=== PATIENT | female | born 1950 | race Caucasian/White ===

== ENCOUNTER 2018-04-25 13:29 | Emergency (ER) | payer MEDICARE, BC ==
--- NOTE | 2018-04-25 14:05 | UC ---
Headache HPI - History Of Current Complaint Chief Complaint: UCHeadache Stated Complaint: NAUSEA, DIZZINESS, HEAD/NECK ACHE Time Seen by Provider: 04/25/18 14:02 Hx Last Menstrual Period: n/a Pain Intensity: 8 - Allergies/Home Medications Allergies/Adverse Reactions: Allergies Allergy/AdvReac Type Severity Reaction Status Date / Time Penicillins Allergy Unknown Verified 04/25/18 13:58 Reaction Details-strong family hx Home Medications: Home Medications Eye Drop For Glaucoma 1 drop BOTH EYES DAILY 04/25/18 [History Confirmed ] Ibuprofen TAB* [Motrin TAB* 400 MG] 400 mg PO Q3H PRN 04/25/18 [History Confirmed 04/25/18] PMH/Surg Hx/FS Hx/Imm Hx - Surgical History Surgical History: Yes Surgery Procedure, Year, and Place: Partial Hysterectomy, 2000. Abdominal Adhesions, 2000 - Social History Alcohol Use: "Daily wine ... or cocktail ... a couple a day" Substance Use Type: None Smoking Status (MU): Never Smoked Tobacco - Immunization History Most Recent Influenza Vaccination: Not the Season Physical Exam Vital Signs: Initial Vital Signs Temp 98.5 F 04/25/18 13:45 Pulse 64 04/25/18 13:45 Resp 20 04/25/18 13:45 BP 151/91 04/25/18 13:45 Pulse Ox 100 04/25/18 13:45 Discharge - Discharge Plan Referrals: Corby Do MD [Primary Care Provider] -
--- NOTE | 2018-04-25 14:38 | UC ---
Headache HPI - HPI Summary HPI Summary: pt states she was shoveling snow around 9:30am when she got a sudden severe headache(12/13) followed by an almost immediate pain in the back of her neck and nausea. Friend at bedside tried to get pt to go to ER, pt responded with "I couldn't even get to my own bathroom". she has self tx with motrin which has given her no relief. no hx htn, dm or cva but her father had a ruptured cerebral aneurysm. she denies any injury, fever, visual disturbance, difficulty with speech and balance. - History Of Current Complaint Chief Complaint: [place]ul Stated Complaint: NAUSEA, DIZZINESS, HEAD/NECK ACHE Time Seen by Provider: 04/25/18 14:02 Hx Obtained From: Patient, Family/Farm Consultant Hx Last Menstrual Period: n/a Onset/Duration: Sudden Onset Initially Headache Was: Severe Currently Pain Is: Moderate Pain Intensity: 8 Timing: Constant Character: Sharp Aggravating Factor(s): Nothing Allevating Factor(s): Nothing Associated Signs And Symptoms: Positive: Nausea - Risk Factors SAH Risk Factors: Family History - Allergies/Home Medications Allergies/Adverse Reactions: Allergies Allergy/AdvReac Type Severity Reaction Status Date / Time Penicillins Allergy Unknown Verified 04/25/18 13:58 Reaction Details-strong family hx Home Medications: Home Medications Eye Drop For Glaucoma 1 drop BOTH EYES DAILY 04/25/18 [History Confirmed ] Ibuprofen TAB* [Motrin TAB* 400 MG] 400 mg PO Q3H PRN 04/25/18 [History Confirmed 04/25/18] PMH/Surg Hx/FS Hx/Imm Hx - Additional Past Medical History Additional PMH: Glaucoma - Surgical History Surgical History: Yes Surgery Procedure, Year, and Place: Partial Hysterectomy, 2000. Abdominal Adhesions, 2000 - Family History Known Family History: Positive: Other - father=cerebral aneurysm - Social History Lives: Alone Alcohol Use: "Daily wine ... or cocktail ... a couple a day" Substance Use Type: None Smoking Status (MU): Never Smoked Tobacco - Immunization History Most Recent Influenza Vaccination: Not the Season Review of Systems All Other Systems Reviewed And Are Negative: Yes Constitutional: Positive: Negative Skin: Positive: Negative Eyes: Positive: Negative ENT: Positive: Negative Respiratory: Positive: Negative Cardiovascular: Positive: Negative Gastrointestinal: Positive: Nausea Genitourinary: Positive: Negative Motor: Positive: Negative Neurovascular: Positive: Negative Musculoskeletal: Positive: Negative Neurological: Positive: Headache Psychological: Positive: Negative Physical Exam Triage Information Reviewed: Yes Appearance: Pain Distress - holding head in hands while seated in the chair Vital Signs: Initial Vital Signs Temp 98.5 F 04/25/18 13:45 Pulse 64 04/25/18 13:45 Resp 20 04/25/18 13:45 BP 151/91 04/25/18 13:45 Pulse Ox 100 04/25/18 13:45 Vital Signs Reviewed: Yes Eyes: Positive: Conjunctiva Clear, Other: - PERRL, EOMI. Mild horizontal nysragmus ENT: Positive: Pharynx normal, TMs normal, Other - Tongue midline. Speech fluent.. Negative: Nasal congestion, Nasal drainage Neck: Positive: Supple, Nontender, No Lymphadenopathy. Negative: Nuchal Rigidity Respiratory: Positive: Lungs clear, Normal breath sounds, No respiratory distress Cardiovascular: Positive: RRR, No Murmur Abdomen Description: Positive: Nontender, No Organomegaly, Soft Bowel Sounds: Positive: Present Musculoskeletal: Positive: ROM Intact, Other: - Slow gait Neurological: Positive: Other: - A&Ox3, CN 2-12 intact, 5/5 strength, 2+ reflexes x4, sensation intact x4. Negative rhomberg and pronator drift. Slow but steady gait. Psychological: Positive: Normal Response To Family, Age Appropriate Behavior Skin Exam: Normal Headache Course/Dx - Course Course Of Treatment: the s/s's are c/w a thunder clap CORTEZ. pt requires higher level of care with nurology/neurosurgery services. pt resistant to transfer and required time to speak with her friend. she then agree to go to [facility]. [facility] transfer [place] called, I spoke with Stacy SORIA. they took report and are [facility]. - Differential Dx/Diagnosis Differential Diagnosis/HQI/PQRI: Epidural Hematoma, Subdural Hematoma, Migraine , Subarachnoid Hemorrhage, Tension Headache Provider Diagnosis: Thunderclap headache Discharge - Sign-Out/Discharge Documenting (check all that apply): Patient Departure All imaging exams completed and their final reports reviewed: No Studies - Discharge Plan Condition: Stable Disposition: TRANS HIGHER L OF CARE FAC Referrals: Corby Do MD [Primary Care Provider] - - Billing Disposition and Condition Condition: STABLE Disposition: Trans Higher Lvl of Care Fac
[2018-04-25] MEDS ORDERED: Ondansetron ODT TAB* 4 MG SL PRN (14:41)
[2018-04-25] MEDS ORDERED: Ondansetron ODT TAB* 4 MG PO ONE (14:42)
[2018-04-25 14:53] VITALS: BP 156/76
== END 2018-04-25 15:00 | disposition short-term general hospital (02) ==
LOC: UCCORT 13:29
DX: G44.53 Primary thunderclap headache (principal); H40.9 Unspecified glaucoma; H55.00 Unspecified nystagmus; Z88.0 Allergy status to penicillin
CPT/HCPCS: 99213; A9270-GY; G0463